=== PATIENT | male | born 1955 | race African-American/Black ===

== ENCOUNTER 2021-09-21 19:20 | Inpatient (IN) | payer MEDICARE ==
[2021-09-21 20:25] LABS: #Lymphocytes 0.5 thou/uL (1.20-3.40); #Monocytes 0.1 thou/uL (0.11-0.59); #Neutrophils 8.7 thou/uL (1.40-6.50); %Basophils 0.1 % (0.0-1.0); %Eosinophils 0.1 % (0.0-10.0); %Lymphocytes 5.1 % (21.0-51.0); %Monocytes 1.3 % (0.0-10.0); %Neutrophils 93.4 % (42.0-75.0); Hemoglobin 13.4 g/dL (14.0-18.0); Mean Corpuscular Hemoglobin 32.2 pg (27.0-31.0); Mean Corpuscular Volume 97.7 fL (78.0-98.0); Mean Platelet Volume 8.2 fL (7.4-10.4); Platelet Count 288 thou/uL (130-400); RBC Distribution Width 11.9 % (11.5-14.5); Red Blood Cell (RBC) Count 4.17 mill/uL (4.70-6.10); White Blood Cell (WBC) Count 9.3 thou/uL (4.8-10.8)
[2021-09-21 20:45] LABS: ALT (SGPT) 17 U/L (8-55); AST (SGOT) 31 U/L (5-34); Albumin 4.5 g/dL (3.4-4.8); Alkaline Phosphatase 92 U/L (40-110); Anion Gap 16 mmol/L (10-20); BUN (Urea Nitrogen) 24 mg/dL (8.4-25.7); Bilirubin, Total 0.5 mg/dL (0.2-1.2); Calc. Creatinine Clearance 0 mL/min (70-130); Calcium 9.3 mg/dL (7.8-10.44); Carbon Dioxide 23 mmol/L (23-31); Chloride 106 mmol/L (98-107); Globulin 2.3 g/dL (2.4-3.5); Glucose 135 mg/dL (80-115); Potassium 4.6 mmol/L (3.5-5.1); Protein, Total 6.8 g/dL (5.8-8.1); Sodium 140 mmol/L (136-145)
[2021-09-21 21:20] LABS: CKMB 7.2 ng/mL (0-6.6)
[2021-09-21] MEDS ORDERED: Aspirin Chewable 81 MG TAB ONE (21:32)
[2021-09-21] MEDS ORDERED: Nitroglycerin 2% Ointment 1 INCH/1 GM Packet ONE (21:32)
[2021-09-21] MEDS ORDERED: Furosemide 40 MG/4 ML VIAL ONE (21:32)
[2021-09-21] MEDS ORDERED: Zolpidem Tartrate 5 MG TAB PO PRN (21:40)
[2021-09-21] MEDS ORDERED: Ondansetron PF 4 MG/2 ML Vial IVP PRN (21:40)
[2021-09-21] MEDS ORDERED: HYDROcodone/Acetaminophen 5/325 mg Tablet PO PRN (21:40)
[2021-09-21] MEDS ORDERED: Acetaminophen 325 MG TAB PO PRN (21:40)
[2021-09-21] MEDS ORDERED: Furosemide 20 MG/2 ML VIAL ONE (21:55)
[2021-09-21 23:37] VITALS: BMI 19.6
[2021-09-22] MEDS: Nicotine 21 MG PATCH TD SCH ×2 (00:21→23:15)
[2021-09-22 00:29] LABS: Troponin I 0.105 ng/mL (< 0.028)
[2021-09-22 01:07] LABS: Bacteria/HPF None Seen HPF (None Seen); Bilirubin Negative (Negative); Blood, Urine Negative (Negative); Clarity Clear (Clear); Glucose, Urine (Dipstick) Normal (Negative); Ketone, Urine Negative (Negative); Leukocyte Negative Leu/uL (Negative); Nitrite Negative (Negative); Protein, Urine (Dipstick) Negative (Neg-Trace); RBC/HPF 0-3 HPF (0-3); Specific Gravity, Urine 1.007 (1.002-1.036); Squamous Epithelial 0-3 HPF (0-3); Urobilinogen Normal mg/dL (Less than 2); WBC/HPF 0-3 HPF (0-3)
[2021-09-22 01:09] LABS: Urine Culture Reflex No No
[2021-09-22 02:29] LABS: #Lymphocytes 0.8 thou/uL (1.20-3.40); #Monocytes 0.3 thou/uL (0.11-0.59); #Neutrophils 6.5 thou/uL (1.40-6.50); %Lymphocytes 10.4 % (21.0-51.0); %Monocytes 4.4 % (0.0-10.0); %Neutrophils 85.1 % (42.0-75.0); Hemoglobin 12.9 g/dL (14.0-18.0); Mean Corpuscular HGB CONC 33.1 g/dL (32.0-36.0); Mean Corpuscular Hemoglobin 32.2 pg (27.0-31.0); Mean Corpuscular Volume 97.3 fL (78.0-98.0); Mean Platelet Volume 7.9 fL (7.4-10.4); Platelet Count 252 thou/uL (130-400); RBC Distribution Width 11.8 % (11.5-14.5); White Blood Cell (WBC) Count 7.6 thou/uL (4.8-10.8)
[2021-09-22 02:53] LABS: Troponin I 0.104 ng/mL (< 0.028)
[2021-09-22 03:02] LABS: Anion Gap 15 mmol/L (10-20); BUN (Urea Nitrogen) 24 mg/dL (8.4-25.7); Calc. Creatinine Clearance 71 mL/min (70-130); Calcium 9.2 mg/dL (7.8-10.44); Carbon Dioxide 27 mmol/L (23-31); Cardiac Risk 3.6 (Less than 4.5); Chloride 101 mmol/L (98-107); Cholesterol 145 mg/dl (< 200 Desired); Glucose 125 mg/dL (80-115); HDL Cholesterol 40 mg/dL (>60 Neg Risk); LDL Cholesterol, Calculated 95 mg/dL; Magnesium 2.2 mg/dL (1.6-2.6); Potassium 3.8 mmol/L (3.5-5.1); Sodium 139 mmol/L (136-145); Triglycerides 52 mg/dL (Less than 150)
[2021-09-22] MEDS: Furosemide 40 MG/4 ML VIAL SLOW IVP SCH ×2 (06:05→14:31)
[2021-09-22] MEDS: Famotidine 20 MG TAB PO SCH ×2 (09:36→20:28)
[2021-09-22] MEDS: Aspirin Chewable 81 MG TAB PO SCH (09:36)
[2021-09-22] MEDS: Enoxaparin Sodium 40 MG/0.4 ML SYRINGE SC SCH (09:36)
[2021-09-22 12:10] LABS: SARS-CoV-2 PCR by NAA Not Detected (NotDetected)
[2021-09-23 05:34] LABS: Anion Gap 12 mmol/L (10-20); BUN (Urea Nitrogen) 20 mg/dL (8.4-25.7); Calc. Creatinine Clearance 71 mL/min (70-130); Calcium 9.1 mg/dL (7.8-10.44); Carbon Dioxide 28 mmol/L (23-31); Chloride 102 mmol/L (98-107); Glucose 105 mg/dL (80-115); Magnesium 2.1 mg/dL (1.6-2.6); Potassium 3.3 mmol/L (3.5-5.1); Sodium 139 mmol/L (136-145)
[2021-09-23] MEDS ORDERED: Potassium Chloride 20 MEQ TAB PO SCH (06:00)
[2021-09-23] MEDS: Furosemide 40 MG/4 ML VIAL SLOW IVP SCH (07:04)
[2021-09-23] MEDS ORDERED: Furosemide 40 MG/4 ML VIAL SLOW IVP SCH (07:15)
[2021-09-23] MEDS: Enoxaparin Sodium 40 MG/0.4 ML SYRINGE SC SCH (09:42)
[2021-09-23] MEDS: Famotidine 20 MG TAB PO SCH ×2 (09:42→20:17)
[2021-09-23] MEDS: Aspirin Chewable 81 MG TAB PO SCH (09:42)
[2021-09-23] MEDS ORDERED: CATH Communication Order-Pharmacy FS SCH (10:30)
[2021-09-23] MEDS: Furosemide 20 MG/2 ML VIAL SLOW IVP SCH (14:35)
[2021-09-23] MEDS: Nicotine 21 MG PATCH TD SCH (20:21)
[2021-09-24 05:49] LABS: Anion Gap 15 mmol/L (10-20); BUN (Urea Nitrogen) 23 mg/dL (8.4-25.7); Calc. Creatinine Clearance 79 mL/min (70-130); Calcium 9.2 mg/dL (7.8-10.44); Carbon Dioxide 26 mmol/L (23-31); Chloride 102 mmol/L (98-107); Glucose 121 mg/dL (80-115); Potassium 3.6 mmol/L (3.5-5.1); Sodium 139 mmol/L (136-145)
[2021-09-24] MEDS: Aspirin Chewable 81 MG TAB PO SCH (08:54)
[2021-09-24] MEDS: Famotidine 20 MG TAB PO SCH ×2 (08:54→20:24)
[2021-09-24] MEDS: Furosemide 20 MG/2 ML VIAL SLOW IVP SCH ×2 (08:54→15:31)
[2021-09-24] MEDS ORDERED: Potassium Chloride 20 MEQ TAB PO SCH (17:00)
[2021-09-24] MEDS: Carvedilol 3.125 MG TAB PO SCH (17:47)
[2021-09-24] MEDS: Nicotine 21 MG PATCH TD SCH (20:25)
[2021-09-25] MEDS: Carvedilol 3.125 MG TAB PO SCH (05:59)
[2021-09-25] MEDS: Aspirin Chewable 81 MG TAB PO SCH (06:00)
[2021-09-25] MEDS ORDERED: Sodium Chloride 0.9% 1,000 ML IV SCH (06:00)
[2021-09-25] MEDS: Famotidine 20 MG TAB PO SCH (06:01)
[2021-09-25] MEDS ORDERED: Heparin 10,000 UNITS/ 10 ML VIAL ONE (06:36)
[2021-09-25] MEDS ORDERED: Lidocaine 1% (PF) 30 ML VIAL ONE (06:37)
[2021-09-25] MEDS ORDERED: Fentanyl 100 MCG/2 ML VIAL ONE (07:04)
[2021-09-25] MEDS ORDERED: Midazolam HCl 2 mg/2 ml Vial ONE (07:04)
[2021-09-25] MEDS ORDERED: Nitroglycerin 100MG/250ML BOT 250 ML ONE (07:32)
[2021-09-25] MEDS ORDERED: Sodium Chloride 0.9% 200 ML IV PRN (07:56)
[2021-09-25] MEDS ORDERED: Nitroglycerin 0.4 MG TAB (25 Tab Bottle) SL PRN (07:56)
[2021-09-25] MEDS ORDERED: Acetaminophen/Codeine 30-300mg Tablet PO PRN ×2 (07:56)
[2021-09-25] MEDS ORDERED: Potassium Chloride 20 MEQ TAB PO SCH (13:45)
[2021-09-25] MEDS ORDERED: Iopamidol 370 76% 100 ML VIAL ONE (13:54)
[2021-09-25 15:53] VITALS: BP 129/67; TEMP 97.5
[2021-09-25] MEDS ORDERED: Carvedilol 3.125 MG TAB PO SCH (17:00)
[2021-09-25] MEDS ORDERED: Rosuvastatin 20 MG TAB PO SCH (21:00)
[2021-09-26] MEDS ORDERED: Spironolactone 25 MG TAB PO SCH (08:00)
== END 2021-09-25 16:51 | disposition home or self-care (01) | DRG 280 ==
LOC: ERS 19:20 → 2SW 21:30 → OBSVTOIN 09-22 15:48 → 2SW 09-25 03:41
PROVIDERS: ADMIT Student in an Organized Health Care Education/Training Program; ATTEND Student in an Organized Health Care Education/Training Program
PROC: 4A023N7 Measurement of Cardiac Sampling and Pressure, Left Heart, Percutaneous Approach (ICD-10-PCS; principal; 2021-09-25)
PROC: B2111ZZ Fluoroscopy of Multiple Coronary Arteries using Low Osmolar Contrast (ICD-10-PCS; 2021-09-25)
PROC: B2151ZZ Fluoroscopy of Left Heart using Low Osmolar Contrast (ICD-10-PCS; 2021-09-25)
DX: I11.0 Hypertensive heart disease with heart failure (principal); I50.23 Acute on chronic systolic (congestive) heart failure; I21.A1 Myocardial infarction type 2; Z20.822 Contact with and (suspected) exposure to COVID-19; I42.8 Other cardiomyopathies; I25.5 Ischemic cardiomyopathy; F17.210 Nicotine dependence, cigarettes, uncomplicated; J44.9 Chronic obstructive pulmonary disease, unspecified; I25.10 Atherosclerotic heart disease of native coronary artery without angina pectoris; Z28.21 Immunization not carried out because of patient refusal; Z98.890 Other specified postprocedural states; Z82.49 Family history of ischemic heart disease and other diseases of the circulatory system
CPT/HCPCS: 36415; 71045; 80048; 80053; 80061; 81001; 82553; 83735; 83880; 84443; 84484; 85025; 93005; 93306; 93458; 93798; 94760; 96372; 96374; 96376; 99152; 99153; G0378; J1644; J1650; J1940; J2001; J2250; J3010; J7050; Q9967; U0003; U0005